=== PATIENT | female | born 1995 | race Caucasian/White ===

== ENCOUNTER 2017-08-03 20:22 | Inpatient (IN) | payer OTHER ==
[2017-08-03] VITALS (49 sets, daily range): BP systolic 133; BP diastolic 65; PULSE 108; TEMP 97.2; O2SAT 84–100
[~2017-08-03] VITALS: Ht 167.6 cm; Wt 53.8 kg
[~2017-08-03 20:22] MED LIST changes: -LEVEMIR FLEX100 U/ML SQ; -NOVOLOG FLEX100 U/ML SQ
[2017-08-03 20:43] LABS: COLLECTION METHOD CLEAN CATCH
[2017-08-03 20:49] LABS: MUCOUS Present /lpf; PH 5 (5-8); SQUAMOUS EPITHELIAL 0-2 /hpf; URINE APPEARANCE Clear; URINE BACTERIA None Seen /hpf; URINE BILIRUBIN Negative (NEGATIVE); URINE BLOOD 1+ (NEGATIVE); URINE COLOR Straw; URINE GLUCOSE 3+ (NEGATIVE); URINE KETONE 2+ (NEGATIVE); URINE LEUKOCYTE ESTERASE Negative (NEGATIVE); URINE PROTEIN(semi-quant) 1+ (NEGATIVE); URINE RBC 0-2 /hpf; URINE UROBILINOGEN Negative (NEGATIVE); URINE WBC 0-2 /hpf
[2017-08-03 20:58] LABS: VENOUS BLOOD GAS BE -26.3 (-4-4); VENOUS BLOOD GAS SAO2 79.3 % (60-80); VENOUS BLOOD GAS SITE VENIPUNCTURE
[2017-08-03 21:07] LABS: HEMATOCRIT 50.9 % (35.0-45.0); HEMOGLOBIN 16.5 g/dl (12.0-15.0); MEAN CELL VOLUME 94 fl (80.0-95.0); MEAN CORPUSCULAR HEMOGLOBIN 30 pg (26.0-32.0); MEAN CORPUSCULAR HGB CONC 32 g/dl (33.0-37.0); MEAN PLATELET VOLUME 10.2 fl (7.4-10.4); PLATELET COUNT 499 K/mm3 (130-400); RED BLOOD COUNT 5.44 M/mm3 (4.10-5.30); WHITE BLOOD COUNT 11.7 K/mm3 (4.8-10.8)
[2017-08-03 21:10] LABS: ADD PATHOLOGY DIFF REVIEW NO
[2017-08-03 21:24] LABS: BAND 3 % (0-10); NEUTROPHILS 69 % (42.0-75.2); TOTAL CELLS COUNTED 100
[2017-08-03 21:25] LABS: BURR CELLS 1+; POLYCHROMASIA 1+
[2017-08-03 21:27] LABS: LYMPHOCYTE 26 % (20.0-51.0)
[2017-08-03 21:35] LABS: ACETONE,SERUM MODERATE
[2017-08-03 21:41] LABS: AMPHETAMINE URINE NEGATIVE; BARBITURATES URINE NEGATIVE; BENZODIAZEPINES URINE NEGATIVE; BUPRENORPHINE URINE NEGATIVE; METHADONE URINE NEGATIVE; OPIATES URINE NEGATIVE; OXYCODONE URINE NEGATIVE; PHENCYCLIDINE URINE NEGATIVE; PROPOXYPHENE URINE NEGATIVE; THC CANNABINOIDS URINE NEGATIVE; TRICYCLIC ANTIDEPRESS URINE NEGATIVE
[2017-08-03 21:42] LABS: ADJUSTED CALCIUM 8.7 mg/dL (8.4-10.2); ALANINE AMINOTRANSFERASE 20 U/L (9-52); ALBUMIN 4.6 gm/dL (3.5-5.0); ALKALINE PHOSPHATASE 127 U/L (50-136); BILIRUBIN,TOTAL 0.4 mg/dL (0.0-1.0); BLOOD UREA NITROGEN 21 mg/dL (7-17); C-REACTIVE PROTEIN < 0.5 mg/dL (0.0-0.9); CALCIUM 9.2 mg/dL (8.4-10.2); CHLORIDE 103 mmol/L (98-107); CREATININE, serum 1.05 mg/dL (0.52-1.25); POTASSIUM 5.6 mmol/L (3.4-5.0); SODIUM 137 mmol/L (137-145); TOTAL PROTEIN 7.3 gm/dL (6.4-8.2)
[2017-08-03 21:48] LABS: CARBON DIOXIDE < 5 mmol/L (22-30); GLUCOSE 718 mg/dL (74-106)
[2017-08-03 23:34] LABS: MAGNESIUM 2.4 mg/dL (1.6-2.3)
[2017-08-04] VITALS (1396 sets, daily range): BP systolic 108–128; BP diastolic 45–77; PULSE 89–110; TEMP 97.2–100.8; O2SAT 75–100
[2017-08-04 01:28] LABS: BLOOD UREA NITROGEN 18 mg/dL (7-17); CALCIUM 8.7 mg/dL (8.4-10.2); CHLORIDE 116 mmol/L (98-107); CREATININE, serum 0.98 mg/dL (0.52-1.25); GLUCOSE 319 mg/dL (74-106)
[2017-08-04] MEDS ORDERED: NOVOLOG FLEX100 U/ML SQ (01:28)
[2017-08-04 01:29] LABS: ARTERIAL BLD GAS O2 SATURATION 97.4 % (92-100); ARTERIAL BLD GAS TCO2 CT 4.1; ARTERIAL BLOOD GAS BASE EXCESS -26.2 (-2-2); ARTERIAL BLOOD GAS HCO3 3.6 meq/L (22-26); OXYHEMOGLOBIN 96.3 %
[2017-08-04] MEDS ORDERED: LEVEMIR FLEX100 U/ML SQ (01:30)
[2017-08-04 01:32] LABS: ALLEN TEST YES; ALLENS TEST RESULT PASS; ARTERIAL BLOOD GAS PHT 6.99 C (7.35-7.45); ARTERIAL BLOOD GAS PO2 128.2 mmHg (80-100); ARTERIAL BLOOD GAS PO2T 128.2 (80-100); ARTERIAL BLOOD GAS pH 6.99 (7.35-7.45); ATS? YES
[2017-08-04 01:37] LABS: POTASSIUM 5.6 mmol/L (3.4-5.0); SODIUM 146 mmol/L (137-145)
[2017-08-04 01:43] LABS: CARBON DIOXIDE < 5 mmol/L (22-30)
[2017-08-04 03:19] LABS: BLOOD UREA NITROGEN 16 mg/dL (7-17); CALCIUM 8.5 mg/dL (8.4-10.2); CHLORIDE 117 mmol/L (98-107); CREATININE, serum 0.98 mg/dL (0.52-1.25); GLUCOSE 397 mg/dL (74-106); SODIUM 146 mmol/L (137-145)
[2017-08-04 03:28] LABS: CARBON DIOXIDE < 5 mmol/L (22-30); POTASSIUM 6.3 mmol/L (3.4-5.0)
[2017-08-04 04:35] LABS: ARTERIAL BLD GAS O2 SATURATION 95.8 % (92-100); ARTERIAL BLD GAS TCO2 CT 3.1; ARTERIAL BLOOD GAS BASE EXCESS -28.5 (-2-2); ARTERIAL BLOOD GAS HCO3 2.7 meq/L (22-26); ARTERIAL BLOOD GAS PO2 93.6 mmHg (80-100); ARTERIAL BLOOD GAS PO2T 93.6 (80-100); OXYHEMOGLOBIN 94.8 %
[2017-08-04 04:36] LABS: ALLEN TEST YES; ALLENS TEST RESULT PASS; ARTERIAL BLOOD GAS PHT 6.92 C (7.35-7.45); ARTERIAL BLOOD GAS pH 6.92 (7.35-7.45); ATS? YES
[2017-08-04 05:32] LABS: HEMATOCRIT 46.7 % (35.0-45.0); HEMOGLOBIN 15.1 g/dl (12.0-15.0); MEAN CELL VOLUME 94 fl (80.0-95.0); MEAN CORPUSCULAR HEMOGLOBIN 31 pg (26.0-32.0); MEAN CORPUSCULAR HGB CONC 32 g/dl (33.0-37.0); MEAN PLATELET VOLUME 9.6 fl (7.4-10.4); PLATELET COUNT 490 K/mm3 (130-400); RED BLOOD COUNT 4.95 M/mm3 (4.10-5.30)
[2017-08-04 05:40] LABS: ADD PATHOLOGY DIFF REVIEW NO; WHITE BLOOD COUNT 22.8 K/mm3 (4.8-10.8)
[2017-08-04 05:44] LABS: BLOOD UREA NITROGEN 15 mg/dL (7-17); CALCIUM 8.6 mg/dL (8.4-10.2); CHLORIDE 114 mmol/L (98-107); CREATININE, serum 1.07 mg/dL (0.52-1.25); SODIUM 145 mmol/L (137-145)
[2017-08-04 05:50] LABS: CARBON DIOXIDE < 5 mmol/L (22-30); GLUCOSE 436 mg/dL (74-106); POTASSIUM 6.4 mmol/L (3.4-5.0)
[2017-08-04 06:11] LABS: BAND 12 % (0-10); LYMPHOCYTE 16 % (20.0-51.0); METAMYELOCYTE 1 % (0-0); NEUTROPHILS 64 % (42.0-75.2); POLYCHROMASIA 1+; TOTAL CELLS COUNTED 100
[2017-08-04 07:28] LABS: BLOOD UREA NITROGEN 14 mg/dL (7-17); CALCIUM 8.8 mg/dL (8.4-10.2); CHLORIDE 112 mmol/L (98-107); CREATININE, serum 0.99 mg/dL (0.52-1.25); GLUCOSE 396 mg/dL (74-106); SODIUM 143 mmol/L (137-145)
[2017-08-04 07:31] LABS: CARBON DIOXIDE < 5 mmol/L (22-30); POTASSIUM 5.8 mmol/L (3.4-5.0)
[2017-08-04 09:34] LABS: BLOOD UREA NITROGEN 12 mg/dL (7-17); CALCIUM 8.6 mg/dL (8.4-10.2); CHLORIDE 111 mmol/L (98-107); CREATININE, serum 0.92 mg/dL (0.52-1.25); GLUCOSE 311 mg/dL (74-106); POTASSIUM 4.8 mmol/L (3.4-5.0); SODIUM 140 mmol/L (137-145)
[2017-08-04 09:36] LABS: CARBON DIOXIDE < 5 mmol/L (22-30)
[2017-08-04 11:29] LABS: CALCIUM 8.6 mg/dL (8.4-10.2); CREATININE, serum 0.82 mg/dL (0.52-1.25); POTASSIUM 4.3 mmol/L (3.4-5.0)
[2017-08-04 13:32] LABS: CALCIUM 8.6 mg/dL (8.4-10.2); CREATININE, serum 0.79 mg/dL (0.52-1.25); POTASSIUM 4.1 mmol/L (3.4-5.0)
[2017-08-04 15:38] LABS: CALCIUM 8.5 mg/dL (8.4-10.2); CREATININE, serum 0.73 mg/dL (0.52-1.25)
[2017-08-04 17:21] LABS: CALCIUM 8.6 mg/dL (8.4-10.2); CREATININE, serum 0.7 mg/dL (0.52-1.25)
[2017-08-04 20:35] LABS: CALCIUM 8.5 mg/dL (8.4-10.2); CREATININE, serum 0.67 mg/dL (0.52-1.25); POTASSIUM 3.8 mmol/L (3.4-5.0)
[2017-08-05] VITALS (533 sets, daily range): BP systolic 103–122; BP diastolic 55–72; PULSE 72–98; TEMP 97.4–100; O2SAT 75–100
[2017-08-05 05:43] LABS: BASO % 0.4 % (0.0-2.0); EOS % 0.5 % (0-4.0); GRAN # 4.7 (1.4-6.5); GRAN % 59.4 % (42.2-75.2); HEMATOCRIT 37.9 % (35.0-45.0); HEMOGLOBIN 13.1 g/dl (12.0-15.0); LYMPH # 2.4 (1.2-3.4); LYMPH % 29.9 % (20.0-51.0); MEAN CELL VOLUME 88 fl (80.0-95.0); MEAN CORPUSCULAR HEMOGLOBIN 30 pg (26.0-32.0); MEAN CORPUSCULAR HGB CONC 35 g/dl (33.0-37.0); MEAN PLATELET VOLUME 8.8 fl (7.4-10.4); MONO # 0.8 (0.1-0.6); MONO % 9.4 % (1.7-9.3); RED BLOOD COUNT 4.31 M/mm3 (4.10-5.30)
[2017-08-05 05:44] LABS: PLATELET COUNT 322 K/mm3 (130-400)
[2017-08-05 05:58] LABS: CALCIUM 8.6 mg/dL (8.4-10.2); CREATININE, serum 0.66 mg/dL (0.52-1.25); POTASSIUM 3.4 mmol/L (3.4-5.0)
[2017-08-06] VITALS (8 sets, daily range): BP systolic 98–192; BP diastolic 48–76; PULSE 69–93; TEMP 98.5–99; O2SAT 94–100
== END 2017-08-06 11:04 | disposition home or self-care (01) | DRG 639 ==
LOC: COL.ER 20:22 → ICU 21:54
PROVIDERS: Emergency Medicine; Nurse Practitioner; Physician Assistant
DX: E10.10 Type 1 diabetes mellitus with ketoacidosis without coma (principal); F17.210 Nicotine dependence, cigarettes, uncomplicated; E86.0 Dehydration; E87.5 Hyperkalemia; Z79.4 Long term (current) use of insulin; Z96.41 Presence of insulin pump (external) (internal)
CPT/HCPCS: J1815; J2060; J2405; J3480; J7030; J7070; J7120

== ENCOUNTER → 2017-08-03 | Outpatient (REF) ==
[~2017-08-03] MED LIST: BIRTH CONTROL PILL; CLARITIN 1010 MG/TAB; LAMICTAL 25MG T25 MG PO; LEVEMIR FLEX100 U/ML SQ; MACROBID 1100 MG/CAP PO; MELATONIN FORTE3 MG; NOVLOG SQ; NOVOLOG 100U100 U/M1; NOVOLOG FLEX100 U/ML SQ; PROZAC 20MG20 MG PO; ULTRAM 50MG TAB50 MG PO
== END ==
LOC: ZLAB.WCH 18:04
DX: Z01.89 Encounter for other specified special examinations (principal)

== ENCOUNTER 2017-09-04 14:13 | Inpatient (IN) | payer OTHER ==
[~2017-09-04] VITALS: Ht 167.6 cm; Wt 49.9 kg
[~2017-09-04 14:13] MED LIST changes: +LEVEMIR FLEX100 U/ML SQ; +NOVOLOG FLEX100 U/ML SQ
[2017-09-04] MEDS ORDERED: MIRENA52 MG IY (14:35)
[2017-09-04 15:37] LABS: BASO # 0.1 (0.0-0.2); BASO % 0.7 % (0.0-2.0); EOS % 0.1 % (0-4.0); GRAN # 7.3 (1.4-6.5); GRAN % 71.7 % (42.2-75.2); HEMATOCRIT 51.2 % (35.0-45.0); HEMOGLOBIN 16.5 g/dl (12.0-15.0); LYMPH # 2.4 (1.2-3.4); LYMPH % 23.3 % (20.0-51.0); MEAN CELL VOLUME 94 fl (80.0-95.0); MEAN CORPUSCULAR HEMOGLOBIN 30 pg (26.0-32.0); MEAN CORPUSCULAR HGB CONC 32 g/dl (33.0-37.0); MEAN PLATELET VOLUME 9.4 fl (7.4-10.4); MONO # 0.3 (0.1-0.6); MONO % 3.4 % (1.7-9.3); PLATELET COUNT 580 K/mm3 (130-400); RED BLOOD COUNT 5.45 M/mm3 (4.10-5.30); REDCELL DISTRIBUTION WIDTH-CV 13.3 % (11.5-14.5)
[2017-09-04 15:48] LABS: ALANINE AMINOTRANSFERASE 41 U/L (9-52); ALBUMIN 5.5 gm/dL (3.5-5.0); ALKALINE PHOSPHATASE 157 U/L (50-136); AST,SGOT 46 U/L (15-37); BILIRUBIN,TOTAL 0.4 mg/dL (0.0-1.0); BLOOD UREA NITROGEN 15 mg/dL (7-17); CALCIUM 9.8 mg/dL (8.4-10.2); CHLORIDE 99 mmol/L (98-107); CREATININE, serum 1.04 mg/dL (0.52-1.25); POTASSIUM 5.3 mmol/L (3.4-5.0); SODIUM 136 mmol/L (137-145); TOTAL PROTEIN 8.7 gm/dL (6.4-8.2)
[2017-09-04 15:50] LABS: COLLECTION METHOD CLEAN CATCH
[2017-09-04 15:55] LABS: PH 5 (5-8); SQUAMOUS EPITHELIAL 0-2 /hpf; URINE APPEARANCE Clear; URINE BACTERIA None Seen /hpf; URINE BILIRUBIN Negative (NEGATIVE); URINE BLOOD 2+ (NEGATIVE); URINE COLOR Straw; URINE GLUCOSE 3+ (NEGATIVE); URINE KETONE 2+ (NEGATIVE); URINE LEUKOCYTE ESTERASE Negative (NEGATIVE); URINE NITRATE Negative (NEGATIVE); URINE PROTEIN(semi-quant) Negative (NEGATIVE); URINE RBC 0-2 /hpf; URINE UROBILINOGEN Negative (NEGATIVE)
[2017-09-04 16:01] LABS: CARBON DIOXIDE < 5 mmol/L (22-30); GLUCOSE 793 mg/dL (74-106)
[2017-09-04 16:22] LABS: INFLUENZA A NEGATIVE; INFLUENZA B NEGATIVE
[2017-09-04 17:22] VITALS: BP 135/82; PULSE 118; TEMP 96.4
[2017-09-04 17:37] LABS: LIPASE 167 U/L (23-300)
[2017-09-04 17:44] LABS: ACETONE,SERUM MODERATE
[2017-09-04 18:03] VITALS: BP 122/81; PULSE 92
[2017-09-04 19:59] LABS: CALCIUM 8.2 mg/dL (8.4-10.2); CREATININE, serum 0.75 mg/dL (0.52-1.25); POTASSIUM 4.5 mmol/L (3.4-5.0)
[2017-09-04 20:00] VITALS: BP 109/52; PULSE 102; TEMP 97.1
[2017-09-04 22:22] LABS: BLOOD UREA NITROGEN 11 mg/dL (7-17); CALCIUM 7.8 mg/dL (8.4-10.2); CHLORIDE 111 mmol/L (98-107); CREATININE, serum 0.79 mg/dL (0.52-1.25); GLUCOSE 256 mg/dL (74-106); POTASSIUM 4.6 mmol/L (3.4-5.0); SODIUM 134 mmol/L (137-145)
[2017-09-04 22:29] LABS: CARBON DIOXIDE < 5 mmol/L (22-30)
[2017-09-05] VITALS (7 sets, daily range): BP systolic 101–107; BP diastolic 51–62; PULSE 62–96; TEMP 97–99.6
[2017-09-05 00:44] LABS: CALCIUM 7.6 mg/dL (8.4-10.2); CREATININE, serum 0.73 mg/dL (0.52-1.25); POTASSIUM 4.2 mmol/L (3.4-5.0)
[2017-09-05 02:01] LABS: CALCIUM 7.4 mg/dL (8.4-10.2); CREATININE, serum 0.69 mg/dL (0.52-1.25); POTASSIUM 4.1 mmol/L (3.4-5.0)
[2017-09-05 03:42] LABS: CALCIUM 7.6 mg/dL (8.4-10.2); CREATININE, serum 0.68 mg/dL (0.52-1.25); POTASSIUM 3.9 mmol/L (3.4-5.0)
[2017-09-05 05:39] LABS: BASO # 0.1 (0.0-0.2); BASO % 0.4 % (0.0-2.0); EOS % 0.1 % (0-4.0); GRAN # 8.9 (1.4-6.5); GRAN % 62.5 % (42.2-75.2); LYMPH # 4.1 (1.2-3.4); LYMPH % 28.5 % (20.0-51.0); MEAN CELL VOLUME 90 fl (80.0-95.0); MEAN CORPUSCULAR HGB CONC 34 g/dl (33.0-37.0); MEAN PLATELET VOLUME 8.7 fl (7.4-10.4); MONO # 1.1 (0.1-0.6); MONO % 7.7 % (1.7-9.3); RED BLOOD COUNT 4.03 M/mm3 (4.10-5.30); REDCELL DISTRIBUTION WIDTH-CV 13.4 % (11.5-14.5)
[2017-09-05 05:42] LABS: HEMATOCRIT 36.4 % (35.0-45.0); HEMOGLOBIN 12.3 g/dl (12.0-15.0); MEAN CORPUSCULAR HEMOGLOBIN 31 pg (26.0-32.0); PLATELET COUNT 374 K/mm3 (130-400)
[2017-09-05 05:52] LABS: ALBUMIN 2.8 gm/dL (3.5-5.0); BILIRUBIN,TOTAL 0.5 mg/dL (0.0-1.0); CALCIUM 7.7 mg/dL (8.4-10.2); CREATININE, serum 0.68 mg/dL (0.52-1.25); MAGNESIUM 1.9 mg/dL (1.6-2.3); POTASSIUM 3.7 mmol/L (3.4-5.0); TOTAL PROTEIN 5.4 gm/dL (6.4-8.2)
[2017-09-05 07:51] LABS: CALCIUM 7.9 mg/dL (8.4-10.2); CREATININE, serum 0.74 mg/dL (0.52-1.25)
[2017-09-05 09:59] LABS: CALCIUM 7.6 mg/dL (8.4-10.2); CREATININE, serum 0.66 mg/dL (0.52-1.25); POTASSIUM 3.8 mmol/L (3.4-5.0)
[2017-09-05 11:58] LABS: CALCIUM 7.7 mg/dL (8.4-10.2); CREATININE, serum 0.67 mg/dL (0.52-1.25); POTASSIUM 3.3 mmol/L (3.4-5.0)
[2017-09-05 13:57] LABS: CALCIUM 7.9 mg/dL (8.4-10.2); CREATININE, serum 0.63 mg/dL (0.52-1.25); POTASSIUM 3.4 mmol/L (3.4-5.0)
[2017-09-05 15:57] LABS: CREATININE, serum 0.59 mg/dL (0.52-1.25); POTASSIUM 3.4 mmol/L (3.4-5.0)
[2017-09-05 17:59] LABS: CALCIUM 7.9 mg/dL (8.4-10.2); CREATININE, serum 0.59 mg/dL (0.52-1.25); POTASSIUM 3.5 mmol/L (3.4-5.0)
[2017-09-05 19:51] LABS: CALCIUM 7.9 mg/dL (8.4-10.2); CREATININE, serum 0.59 mg/dL (0.52-1.25)
[2017-09-05 21:42] LABS: CREATININE, serum 0.55 mg/dL (0.52-1.25); POTASSIUM 3.4 mmol/L (3.4-5.0)
[2017-09-05 23:58] LABS: CALCIUM 7.7 mg/dL (8.4-10.2); CREATININE, serum 0.65 mg/dL (0.52-1.25); POTASSIUM 3.7 mmol/L (3.4-5.0)
[2017-09-06 02:00] LABS: CREATININE, serum 0.59 mg/dL (0.52-1.25); POTASSIUM 3.3 mmol/L (3.4-5.0)
[2017-09-06 03:53] VITALS: BP 107/57; PULSE 64; TEMP 97.1
[2017-09-06 03:59] LABS: CALCIUM 7.9 mg/dL (8.4-10.2); CREATININE, serum 0.6 mg/dL (0.52-1.25); POTASSIUM 3.2 mmol/L (3.4-5.0)
[2017-09-06 06:07] LABS: CALCIUM 7.9 mg/dL (8.4-10.2); CREATININE, serum 0.52 mg/dL (0.52-1.25); POTASSIUM 3.1 mmol/L (3.4-5.0)
[2017-09-06 07:56] LABS: CALCIUM 8.4 mg/dL (8.4-10.2); CREATININE, serum 0.53 mg/dL (0.52-1.25)
[2017-09-06 08:00] VITALS: BP 115/70; PULSE 84; TEMP 98.6
[2017-09-06 09:52] LABS: CALCIUM 7.7 mg/dL (8.4-10.2); CREATININE, serum 0.61 mg/dL (0.52-1.25); POTASSIUM 3.2 mmol/L (3.4-5.0)
[2017-09-06 11:52] LABS: CALCIUM 8.1 mg/dL (8.4-10.2); CREATININE, serum 0.59 mg/dL (0.52-1.25); POTASSIUM 3.1 mmol/L (3.4-5.0)
[2017-09-06 12:00] VITALS: BP 115/70; PULSE 83; TEMP 98.3
[2017-09-06 14:48] LABS: CALCIUM 8.3 mg/dL (8.4-10.2); CREATININE, serum 0.57 mg/dL (0.52-1.25); POTASSIUM 3.4 mmol/L (3.4-5.0)
[2017-09-06 15:57] LABS: CALCIUM 8.6 mg/dL (8.4-10.2); CREATININE, serum 0.58 mg/dL (0.52-1.25); POTASSIUM 3.4 mmol/L (3.4-5.0)
[2017-09-06 16:00] VITALS: BP 126/83; PULSE 83; TEMP 98.8
[2017-09-06 19:59] VITALS: BP 125/75; PULSE 68; TEMP 97.4
[2017-09-06 23:28] VITALS: BP 116/61; PULSE 66; TEMP 98.3
[2017-09-07 03:39] VITALS: BP 101/64; PULSE 57; TEMP 97.3
[2017-09-07 08:44] VITALS: BP 125/72; PULSE 63; TEMP 97.8
[2017-09-07] MEDS ORDERED: NOVOLOG FLEX100 U/ML SQ (09:14)
[2017-09-07] MEDS ORDERED: THE MEDICINE SH1 DE3 MC (09:14)
[2017-09-07] MEDS ORDERED: LEVEMIR FLEX100 U/ML SQ (09:14)
[2017-09-07] MEDS ORDERED: GLUCOSE TEST ST1 DEV MC (09:14)
== END 2017-09-07 11:36 | disposition home or self-care (01) | DRG 638 ==
LOC: COL.ER 14:13 → ICU 16:13 → MEDICAL 09-06 18:20
PROVIDERS: Family Medicine
DX: E10.10 Type 1 diabetes mellitus with ketoacidosis without coma (principal); N17.9 Acute kidney failure, unspecified; F17.210 Nicotine dependence, cigarettes, uncomplicated; E86.0 Dehydration; Z91.14 Patient's other noncompliance with medication regimen
CPT/HCPCS: 99223-AI; 99233-AI; 99239; J1170; J1650; J1815; J2405; J7030; J7042

== ENCOUNTER → 2017-09-14 | Outpatient (CLI) | payer OTHER ==
[~2017-09-14] MED LIST changes: +GLUCOSE TEST ST1 DEV MC; +MIRENA52 MG IY; +THE MEDICINE SH1 DE3 MC
[2017-09-14 16:49] LABS: CHOLESTEROL RISK RATIO 3.7
[2017-09-14 17:20] LABS: TSH w REFLEX 0.834 uIU/mL (0.465-4.680)
== END ==
LOC: COL.LAB 15:53
PROVIDERS: Family Medicine
DX: Z13.220 Encounter for screening for lipoid disorders (principal); Z13.29 Encounter for screening for other suspected endocrine disorder

== ENCOUNTER 2017-12-16 00:38 | Inpatient (IN) | payer OTHER, MEDICAID ==
[2017-12-16] VITALS (730 sets, daily range): BP systolic 112–138; BP diastolic 65–83; PULSE 67–84; TEMP 97.3–98.6; O2SAT 81–100
[~2017-12-16] VITALS: Ht 167.6 cm; Wt 54.4 kg
[2017-12-16 01:11] LABS: COLLECTION METHOD CLEAN CATCH
[2017-12-16 01:15] LABS: HEMATOCRIT 42.5 % (35.0-45.0); HEMOGLOBIN 15.1 g/dl (12.0-15.0); MEAN CELL VOLUME 89 fl (80.0-95.0); MEAN CORPUSCULAR HEMOGLOBIN 32 pg (26.0-32.0); MEAN CORPUSCULAR HGB CONC 36 g/dl (33.0-37.0); MEAN PLATELET VOLUME 8.7 fl (7.4-10.4); PLATELET COUNT 539 K/mm3 (130-400); REDCELL DISTRIBUTION WIDTH-CV 11.6 % (11.5-14.5)
[2017-12-16 01:24] LABS: ALANINE AMINOTRANSFERASE 22 U/L (9-52); ALBUMIN 4.5 gm/dL (3.5-5.0); ALKALINE PHOSPHATASE 128 U/L (50-136); ANION GAP 28 mmol/L (7-16); AST,SGOT 20 U/L (15-37); BILIRUBIN,TOTAL 0.5 mg/dL (0.0-1.0); BLOOD UREA NITROGEN 17 mg/dL (7-17); CALCIUM 9.9 mg/dL (8.4-10.2); CHLORIDE 95 mmol/L (98-107); CREATININE, serum 0.68 mg/dL (0.52-1.25); GLUCOSE 266 mg/dL (74-106); POTASSIUM 4.2 mmol/L (3.4-5.0); SODIUM 136 mmol/L (137-145); TOTAL PROTEIN 8.7 gm/dL (6.4-8.2)
[2017-12-16 01:36] LABS: MUCOUS Present /lpf; PH 5 (5-8); SQUAMOUS EPITHELIAL 0-2 /hpf; URINE APPEARANCE Clear; URINE BACTERIA Rare /hpf; URINE BILIRUBIN Negative (NEGATIVE); URINE BLOOD Negative (NEGATIVE); URINE COLOR Yellow; URINE GLUCOSE 3+ (NEGATIVE); URINE KETONE 2+ (NEGATIVE); URINE LEUKOCYTE ESTERASE Negative (NEGATIVE); URINE NITRATE Negative (NEGATIVE); URINE PROTEIN(semi-quant) 1+ (NEGATIVE); URINE RBC 0-2 /hpf; URINE UROBILINOGEN Negative (NEGATIVE)
[2017-12-16 01:38] LABS: CARBON DIOXIDE 13 mmol/L (22-30)
[2017-12-16 02:01] LABS: ACETONE,SERUM MODERATE
[2017-12-16 03:02] LABS: BAND 8 % (0-10); LYMPHOCYTE 44 % (20.0-51.0); METAMYELOCYTE 1 % (0-0); NEUTROPHILS 44 % (42.0-75.2); PLATELET ESTIMATE INCREASED (NORMAL)
[2017-12-16 03:48] LABS: CALCIUM 8.6 mg/dL (8.4-10.2); CREATININE, serum 0.65 mg/dL (0.52-1.25); POTASSIUM 3.3 mmol/L (3.4-5.0)
[2017-12-16 04:44] LABS: MAGNESIUM 1.7 mg/dL (1.6-2.3); PHOSPHOROUS 2.6 mg/dL (2.5-4.5)
[2017-12-16 04:50] LABS: ACETAMINOPHEN < 10 ug/mL (10-30); ALCOHOL(ethanol),MEDICAL < 10 mg/dL; SALICYLATE < 1.0 mg/dL
[2017-12-16 06:00] LABS: CALCIUM 8.2 mg/dL (8.4-10.2); CREATININE, serum 0.49 mg/dL (0.52-1.25); POTASSIUM 3.7 mmol/L (3.4-5.0)
[2017-12-16 07:40] LABS: CALCIUM 8.1 mg/dL (8.4-10.2); CREATININE, serum 0.54 mg/dL (0.52-1.25); POTASSIUM 3.7 mmol/L (3.4-5.0)
[2017-12-16 09:26] LABS: CALCIUM 8.2 mg/dL (8.4-10.2); CREATININE, serum 0.48 mg/dL (0.52-1.25); POTASSIUM 3.7 mmol/L (3.4-5.0)
[2017-12-16 11:12] LABS: CALCIUM 8.2 mg/dL (8.4-10.2); CREATININE, serum 0.48 mg/dL (0.52-1.25); POTASSIUM 3.8 mmol/L (3.4-5.0)
[2017-12-16 16:27] LABS: CALCIUM 8.3 mg/dL (8.4-10.2); CREATININE, serum 0.58 mg/dL (0.52-1.25); POTASSIUM 4.1 mmol/L (3.4-5.0)
[2017-12-17] VITALS: BP 137/78; PULSE 68; TEMP 97.7
[2017-12-17 04:00] VITALS: BP 122/70; PULSE 58
[2017-12-17 05:47] LABS: BASO % 0.4 % (0.0-2.0); EOS # 0.1 (0.0-0.7); EOS % 0.8 % (0-4.0); GRAN # 3.6 (1.4-6.5); GRAN % 47.1 % (42.2-75.2); HEMATOCRIT 38.4 % (35.0-45.0); HEMOGLOBIN 13.3 g/dl (12.0-15.0); LYMPH # 3.4 (1.2-3.4); LYMPH % 44.6 % (20.0-51.0); MEAN CELL VOLUME 91 fl (80.0-95.0); MEAN CORPUSCULAR HEMOGLOBIN 32 pg (26.0-32.0); MEAN CORPUSCULAR HGB CONC 35 g/dl (33.0-37.0); MEAN PLATELET VOLUME 8.8 fl (7.4-10.4); MONO # 0.5 (0.1-0.6); MONO % 6.3 % (1.7-9.3); RED BLOOD COUNT 4.21 M/mm3 (4.10-5.30); REDCELL DISTRIBUTION WIDTH-CV 11.6 % (11.5-14.5)
[2017-12-17 05:55] LABS: PLATELET COUNT 395 K/mm3 (130-400)
[2017-12-17 05:59] LABS: CALCIUM 8.7 mg/dL (8.4-10.2); CREATININE, serum 0.51 mg/dL (0.52-1.25); POTASSIUM 3.9 mmol/L (3.4-5.0)
[2017-12-17 06:37] VITALS: BP 128/74; PULSE 75; TEMP 98.1
[2017-12-17 11:26] VITALS: BP 120/69; PULSE 91; TEMP 98.2
[2017-12-17] MEDS ORDERED: LEVEMIR FLEX100 U/ML SQ (12:37)
[2017-12-17] MEDS ORDERED: THE MEDICINE SH1 DE3 MC (12:38)
== END 2017-12-17 13:15 | disposition home or self-care (01) | DRG 639 ==
LOC: COL.ER 00:38 → ICU 02:10 → OB 12-17 06:23
PROVIDERS: Emergency Medicine; Internal Medicine; Nurse Practitioner Family
DX: E10.10 Type 1 diabetes mellitus with ketoacidosis without coma (principal); Z79.4 Long term (current) use of insulin; F17.210 Nicotine dependence, cigarettes, uncomplicated
CPT/HCPCS: 99223-AI; 99239; J1815; J3480; J7030